=== PATIENT | male | born 1955 | race Hispanic/Latino ===

== ENCOUNTER 2017-02-18 09:19 | Emergency (ER) | payer OTHER ==
[~2017-02-18] VITALS: Ht 167.6 cm; Wt 88.6 kg
[2017-02-18] MEDS ORDERED: PERCOCET 5/325M1 TAB PO (09:51)
[2017-02-18] MEDS ORDERED: EC-NAPROSYN500 MG PO (09:51)
[2017-02-18 10:46] VITALS: BP 114/71
== END 2017-02-18 11:07 | disposition home or self-care (01) | DRG 563 ==
LOC: ED 09:19
DX: S83.92XA Sprain of unspecified site of left knee, initial encounter (principal); M25.462 Effusion, left knee; W17.89XA Other fall from one level to another, initial encounter; Y93.89 Activity, other specified; Y92.89 Other specified places as the place of occurrence of the external cause; M25.562 Pain in left knee